=== PATIENT | female | born 1935 | race Caucasian/White ===

== ENCOUNTER 2017-03-14 12:37 | Inpatient (IN) | payer OTHER ==
[~2017-03-14] VITALS: Ht 162.6 cm; Wt 69.9 kg
[~2017-03-14 12:37] MED LIST: AMITRIPTYLINE H10 M1 PO; ATORVASTATIN CA80 MG PO; EFFEXOR XR75 MG PO; LASIX 20 MG TAB20 MG PO; PANTOPRAZOLE SO40 MG PO; PLAVIX 75 MG TA75 M1 PO; TOPROL XL100 MG PO
[2017-03-14 12:38] VITALS: BP 156/77
[2017-03-14] MEDS ORDERED: KEFLEX500 M1 PO (13:17)
[2017-03-14] MEDS ORDERED: NORVASC10 MG PO (13:17)
[2017-03-14] MEDS ORDERED: NITROGLYCERIN0.4 MG SUBLING (13:17)
[2017-03-14] MEDS ORDERED: TRICOR145 MG PO (13:18)
[2017-03-14 13:19] LABS: ABSOLUTE EOSINOPHILS 0.1 thou/uL (0.0-0.7); ABSOLUTE LYMPHOCYTES 1.2 thou/uL (0.8-5.3); ABSOLUTE MONOCYTES 0.3 thou/uL (0.0-1.2); ABSOLUTE NEUTROPHILS 3.1 thou/uL (1.6-8.1); BASOPHILS 0.8 %; EOSINOPHILS 1.2 %; HEMATOCRIT 40.6 % (37.0-47.0); HEMOGLOBIN 13.6 gm/dL (12.0-15.0); MCH 28.8 pg (26.0-34.0); MCHC 33.5 g/dL (28.0-37.0); MCV 85.9 fL (80.0-100.0); MONOCYTES 7.1 %; MPV 7.8 fl. (7.2-11.1); NUCLEATED RBCS 0 /100WBC; PLATELET COUNT* 232 thou/uL (150-400); POLYS 65.9 %; RBC 4.73 mil/uL (4.20-5.00); RDW-CV 13.9 % (10.5-14.5); WBC 4.7 thou/uL (4.0-11.0)
[2017-03-14 13:24] LABS: INR 1.1; PROTIME 10.3 Seconds (9.20-11.50)
[2017-03-14 13:25] LABS: ANION GAP 10 mmol/L (7-16); BUN 13 mg/dL (7-18); CALCIUM 8.9 mg/dL (8.5-10.1); CHLORIDE 103 mmol/L (98-107); CO2 28 mmol/L (21-32); CREATININE 0.8 mg/dL (0.6-1.3); GLUCOSE 106 mg/dL (70-99); POTASSIUM 3.4 mmol/L (3.5-5.1); SODIUM 141 mmol/L (136-145)
[2017-03-14 13:36] LABS: ALBUMIN 3.6 g/dL (3.4-5.0); ALKALINE PHOSPHATASE 69 U/L (46-116); LIPASE 261 U/L (73-393); NT-PRO BRAIN NAT PEPTIDE 189 pg/mL (<300); SGOT 35 U/L (15-37); SGPT 25 U/L (30-65); TOTAL BILIRUBIN 0.4 mg/dL (<0.1-1.0); TOTAL PROTEIN 7.5 g/dL (6.4-8.2); TROPONIN-I LEVEL <0.06 ng/mL (<0.06)
--- NOTE | 2017-03-14 13:42 | NUR ---
BRITNEY NOTIFIED UPON PT RETURN. PT CONNECTED TO MONITOR
[2017-03-14 15:06] LABS: URINE BILIRUBIN NEGATIVE (Negative); URINE BLOOD TRACE (Negative); URINE CLARITY CLEAR; URINE COLOR YELLOW; URINE GLUCOSE-RANDOM NEGATIVE (Negative); URINE KETONES TRACE (Negative); URINE LEUKOCYTES-REFLEX NEGATIVE (Negative); URINE NITRITE-REFLEX NEGATIVE (Negative); URINE PROTEIN TRACE (Negative)
[2017-03-14 16:32] VITALS: BP 158/65
[2017-03-14 18:00] VITALS: BP 154/69
--- NOTE | 2017-03-14 18:00 | NUR ---
PT TO UNIT AT 1630 VIA RICHARD AND ED RN SYLVIA. BEDSIDE REPORT RECEIVED. A & O X4. PT IS SLOW TO ANSWER QUESTIONS. ASSESSMENT COMPLETE. VS OBTAINED. MED/SURG STATUS. ORIENTED TO ROOM AND DROPLET ISOLATION PRECAUTIONS MAINTAINED. NEEDED ITEMS AND CALL LIGHT WITHIN REACH.
[2017-03-14 20:00] VITALS: BP 140/64
[2017-03-15 04:00] VITALS: BP 135/70
--- NOTE | 2017-03-15 07:05 | NUR ---
PATIENT CONFUSED THROUGHOUT THE NIGHT, REPEATEDLY ASKING THE SAME QUESTIONS. REORIENTATION PROVIDED NEEDED. PATIENT ORIENTED TO NAME AND PLACE. UPON BLADDER SCANNING, PATIENT ASKED THREE TIMES WHAT IT WOULD SHOW. EXPLANATION GIVEN, HOWEVER, PATIENT FORGETFUL. PATIENT WAS UP TO BR WITH SBA THROUGHTOUT SHIFT, NO URINARY INCONTINENCE NOTED. PATIENT DENIES PAIN AND DISCOMFORT THROUGHOUT SHIFT. HOURLY ROUNDING OBSERVED. CALL LIGHT WITHIN REACH
[2017-03-15 08:00] VITALS: BP 141/70
--- NOTE | 2017-03-15 09:01 | NUR ---
ASSUMED CARE OF PT AROUND 0715 THIS AM. REFER TO ASSESSMENT. PT HAS NO C/O N/V/D OR PAIN THIS AM. STATES SHE WANTS TO GO HOME. FLU PRECAUTIONS/ ISOLATION IN PLACE. NO OTHER CONCERNS AT THIS TIME. CLWR. WCTM.
--- NOTE | 2017-03-15 11:43 | EKG ---
[place] [address] ELECTROCARDIOGRAM REPORT Name: JEAN PAUL SALVADOR Room: [address] ADM IN .R.#: [id number] Admission: 03/14/17 Attend Phys: Anjelica Milton Discharge: Date of : 33 Report #: [id number] THIS REPORT FOR: //name// [facility] ED Test Date: 2017-03-14 Test Time: 13:05:35 Pat Name: JEAN PAUL SALVADOR Department: Room: [facility] Gender: F Wardrobe Technician: Debbi CRUZ : 1935 Requested By: Lico García Order Number: [id number] MD: Harlan Phoenix Measurements Intervals [place] Rate: 69 P: 47 OR: 164 QRS: 4 QRSD: 97 T: 119 QT: 412 QTc: 442 Interpretive Statements Sinus rhythm Abnormal R-wave progression, early transition Abnormal T, consider ischemia, anterior leads Artifact in lead(s) I,II,III,aVR,aVL,aVF,V2,V3,V4,V6 Compared to ECG 03/04/2012 21:17:45 T-wave abnormality now present Possible ischemia still present Electronically Signed On 03-15-2017 11:43:22 TELEPHONIC NURSE by Harlan Phoenix [email or web address] <ELECTRONICALLY SIGNED> By: Harlan Phoenix MD, [facility] 03/15/17 1143 1305 1305 Harlan Phoenix MD, [facility] /EPI
--- NOTE | 2017-03-15 14:29 | NUR ---
PT TRANSFERRED TO MED/SURG UNIT ROOM 307 WITH ALL BELONGINGS. PT STATES SHE WILL CALL HER DAUGHTER TO INFORM HER OF THE TRANSFER. REPORT GIVEN TO MED/SURG NURSE. NO OTHER CONCERNS AT THIS TIME. CLWR. WCTM.
--- NOTE | 2017-03-15 15:02 | NUR ---
MET WITH PT AND SPOKE WITH DTR/RALPH OVER THE PHONE. PT WITH SOME CONFUSION, DIFFICULTY WITH WORDS AT TIMES. PT LIVES ALONE IN [place] AT [facility]. SHE HAS NO SERVICES THERE. PT DRIVES AND IS ABLE TO DO HER OWN ADLS. STATES SHE HASN'T 'FALLEN' YET. PT USES NO EQUIPMENT. SHE HASN'T HAD HH OR BEEN TO SNF. PER RALPH, PT IS SUSPICIOUS OF 'EVERYONE' AND NOT SURE PT WOULD ALLOW HH. DISCUSSED POSSIBLE SNF. HAS THERAPY JAVY ORDERED. EXPLAINED TO DTR QUALIFIERS FOR SNF, WON'T KNOW UNTIL THERAPY SEES HER. PT DOESN'T HAVE A DPOA EITHER. DTR PLANS TO TALK WITH PT ABOUT BOTH OF THOSE ISSUES WHEN SHE VISITS [facility]. ALSO DISCUSSED SNF FACILITIES IN HER INSURANCE NETWORK. RALPH THINKS PT WOULD PREFER [facility], BUT SHE IS OPEN TO DISCUSSING [facility] OR [facility] ALSO. CM TO F/U WITH PT/DTR TOMORROW AFTER THERAPY SEES HER.
--- NOTE | 2017-03-15 17:25 | NUR ---
PATIENT TRANSFERED FROM TELEMETRY, REPORT TAKEN FROM SHEA. PATIENT IS A&OX4, FORGETFUL. ON ROOM AIR, IV LEFT FOREARM, FLUIDS INFUSSING. UP STAND BY WITH UNSTEADY GAIT AT TIMES. PATIENT EASILY DISTRACTED BUT REDIRECTED EASILY. NO C/O PAIN/N/V. NO OTHER CONCERNS AT THIS TIME. APPROPRAITE AND COOPORATIVE .
[2017-03-16] VITALS: BP 130/61
--- NOTE | 2017-03-16 05:50 | NUR ---
PT SLEPT WELL OVERNIGHT, STATES SHE DOESNT FEEL GOOD BUT NO SPECIFIC COMPLAINTS VOICED AT BEDTIME. REFUSING SOME PO MEDICINE STATING NAUSEA BUT DENIES NEED FOR MEDS, CRACKERS AND [place] GIVEN WITH GOOD RELIEF. AO, FORGETFUL. SETTING OFF BED ALARM TO GET OOB UP TO BR TO VOID. ROOM AIR. PRAIRIE BAND. LFA IVF INFUSING PER PUMP. REMAINS ON DROPLET ISOLATION FOR +FLU. NO LABS DRAWN THIS MORNING. CALL LITE IN EASY REACH, BED ALARM ON FOR SAFETY.
[2017-03-16 07:30] VITALS: BP 147/72
--- NOTE | 2017-03-16 12:21 | NUR ---
CONTINUE TO FOLLOW, SPOKE WITH PT'S DTR/RALPH OVER THE PHONE. STATES SHE SPOKE WITH PT LAST EVENING ABOUT SNF AND UNSURE IF PT WILL AGREE. RALPH WAS ABLE TO TALK WITH DR ALEXIS THIS AM AND UNDERSTANDS AT THIS TIME THE RECOMMENDATION WOULD BE FOR 24HR CARE. RALPH WILLING TO CONSIDER SNF VS HOME WITH HER ASSISTING AND HH OR [facility]. MADE HER AWARE THAT [facility] IF FULL AT THIS TIME, WILL CONSIDER [place] AND [facility]. CALLED AND FAXED REFERRAL TO BOTH PLACES. WILL DISCUSS FURTHER WITH PT. PLAN IS FOR PT TO POSSIBLY DC TOMORROW AFTER WORKING MORE WITH THERAPY
[2017-03-16 15:57] VITALS: BP 149/67
--- NOTE | 2017-03-16 19:49 | NUR ---
PATIENT A&OX4, FORGETFULL AND CAN BECOME CONFUSED AT TIMES. ON ROOM AIR, IV LEFT FOREARM SALINE LOCK. UP WITH ASSISTX1 STAND BY, STEADY GIAT. NO C/O PAIN/N/V. PATIENT WAS EMOTIONAL THIS EVENING, STATING SHE WANTS TO GO HOME AND SEE HER CAT. PATIENT REASSURED SHE WILL BE LEAVING TOMORROW. NO OTHER CONCERNS AT THIS TIME. APPROPRIATE AND COOPORATIVE WITH CARE.
[2017-03-16 20:49] VITALS: BP 158/75
--- NOTE | 2017-03-17 05:21 | NUR ---
PT IS ABLE TO COMMUNICATE HER NEEDS TO STAFF EFFECTIVELY. SHE HAS DENIED THE NEED FOR PAIN MEDICATION UP TO THIS TIME. SHE CAN BE CONFUSED AT TIMES. POSSIBLE DISCHARGE TO A SNIF LATER TODAY.
[2017-03-17 08:16] VITALS: BP 133/57
--- NOTE | 2017-03-17 09:13 | NUR ---
RECEIVED CALL FROM PT'S DTR/RALPH STATING PT WAS INSISTENT ABOUT GOING HOME AND DOENS'T WANT TO GO TO SNF. RALPH WILLING TO STAY WITH PT BUT HAS TO WORK TODAY, CAN BE HERE AT 4PM. RALPH THINKS PT WILL BE AGREEABLE TO HH AND [facility]. UPDATED FIONA/PEDIATRIC PHYSICIAN TO FACILITATE DC PLANS
[2017-03-17 12:30] VITALS: BP 140/58
[2017-03-17 15:07] VITALS: BP 133/57
--- NOTE | 2017-03-17 15:32 | NUR ---
PT AND DTR STATED PT'S CLOTHES WERE 'MISSING'. WAS ABLE TO FIND IN CLOTHES IN SECURITY, PT ID'D THEM HERS. BLACK COAT, PIN PJ PANTS WITH BLACK HEARTS, BLACK LONG SLEEVE TSHIRT, WHITE SHORT SLEEVE TSHIRT, PINK SLIPPERS.
[2017-03-17] MEDS ORDERED: TESSALON PERLE100 MG PO (15:44)
[2017-03-17 15:51] VITALS: BP 133/57
[2017-03-17 16:35] VITALS: BP 133/57
--- NOTE | 2017-03-17 16:44 | NUR ---
ASSUMED CARES OF PT AT 0700. PT IN BED, BED IN LOW AND LOCKED POSITION. FALL PRECAUTIONS IN PLACE. CALL BUTTON AND PERSONAL ITEMS IN PT REACH. PT A&O X3, FORGETFUL, CONFUSED. HRRR PER AUSCULTATION, VSS ON RA, AFEBRILE, PERRL, TAKENS MEDS WELL PO. SKIN INTACT, NO EDEMA, SCATTERED BRUISING AND SCARS NOTED. PT UP WITH ONE ASSIST/WALKER. LEFT FA IV PATENT TO FLUSH. PT DENIES PAIN AT THIS TIME. NON PRODUCTIVE COUGH. OCCASIONAL NAUSEA, MEDICATIONS EFFECTIVE. PT CLEARED TO D/C HOME WITH DAUGHTERS HELP. PT SIGNED ALL DISCHARGE FORMS, EDUCATION COMPLETED ABOUT MEDS, STROKE RISKS/S/S, PRESCRIPTION AND SCRIPT EDUCATION GIVEN AND SIGNED. ALL QUESIONS ANSWERED. PT ESCORTED VIA WC WITH DAUGHTER AT SIDE WITH NURSING STAFF TO CAR TO GO HOME. PT STABLE, SMILING, TALKING AT D/C. PT ASSISTED INTO CAR, SEAT BELT SECURED. DISCHARGE COMPLETE AT 1632. ALL OF PT BELONGINGS PACKED, ROOM CHECKED AND CARRIED OUT BY DAUGHTER. IV REMOVED.
== END 2017-03-17 16:32 | disposition home health service (06) | DRG 193 ==
LOC: M.ERS 12:37 → M.2W 15:18 → M.TBA-ER 15:18 → M.2W 16:27 → M.3W 03-15 14:28
PROVIDERS: Emergency Medicine; ADMIT Internal Medicine
DX: J10.08 Influenza due to other identified influenza virus with other specified pneumonia (principal); G93.41 Metabolic encephalopathy; J12.9 Viral pneumonia, unspecified; I10 Essential (primary) hypertension; E78.00 Pure hypercholesterolemia, unspecified; E86.0 Dehydration; E87.6 Hypokalemia; Z87.891 Personal history of nicotine dependence; I25.2 Old myocardial infarction; Z95.5 Presence of coronary angioplasty implant and graft; Z79.899 Other long term (current) drug therapy; Z88.5 Allergy status to narcotic agent; Z23 Encounter for immunization

== ENCOUNTER 2018-11-15 12:23 | Inpatient (IN) | payer OTHER ==
[~2018-11-15] VITALS: Ht 152.4 cm; Wt 64.4 kg
[~2018-11-15 12:23] MED LIST changes: +KEFLEX500 M1 PO; +NITROGLYCERIN0.4 MG SUBLING; +NORVASC10 MG PO; +TESSALON PERLE100 MG PO; +TRICOR145 MG PO
[2018-11-15 12:31] VITALS: BP 179/93
[2018-11-15 14:28] LABS: ABSOLUTE BASOPHILS 0.1 thou/uL (0.0-0.2); ABSOLUTE EOSINOPHILS 0.1 thou/uL (0.0-0.7); ABSOLUTE LYMPHOCYTES 1.1 thou/uL (0.8-5.3); ABSOLUTE MONOCYTES 0.4 thou/uL (0.0-1.2); ABSOLUTE NEUTROPHILS 4.1 thou/uL (1.6-8.1); BASOPHILS 1.3 %; EOSINOPHILS 2.2 %; HEMATOCRIT 41.1 % (37.0-47.0); HEMOGLOBIN 13.9 gm/dL (12.0-15.0); LYMPHOCYTES 19.4 %; MCHC 33.7 g/dL (28.0-37.0); MCV 85.9 fL (80.0-100.0); MONOCYTES 6.9 %; MPV 7.3 fl. (7.2-11.1); NUCLEATED RBCS 0 /100WBC; PLATELET COUNT* 317 thou/uL (150-400); POLYS 70.2 %; RBC 4.79 mil/uL (4.20-5.00); WBC 5.9 thou/uL (4.0-11.0)
[2018-11-15 14:54] LABS: URINE BILIRUBIN NEGATIVE (Negative); URINE CLARITY CLEAR; URINE COLOR YELLOW; URINE GLUCOSE-RANDOM NEGATIVE (Negative); URINE KETONES NEGATIVE (Negative); URINE PROTEIN NEGATIVE (Negative)
[2018-11-15 14:55] LABS: URINE BLOOD NEGATIVE (Negative); URINE NITRITE-REFLEX NEGATIVE (Negative); URINE UROBILINOGEN 0.2 E.U./dl (0.2-1.0)
[2018-11-15 14:57] LABS: URINE LEUKOCYTES-REFLEX NEGATIVE (Negative)
[2018-11-15 14:58] LABS: CALCIUM 8.9 mg/dL (8.5-10.1); CREATININE 0.9 mg/dL (0.6-1.3); POTASSIUM 3.5 mmol/L (3.5-5.1)
[2018-11-15 15:02] LABS: ALBUMIN 3.6 g/dL (3.4-5.0); TOTAL BILIRUBIN 0.3 mg/dL (<0.1-1.0); TOTAL PROTEIN 6.5 g/dL (6.4-8.2)
[2018-11-15 15:04] LABS: AMP/METHAMP Negative (Negative); BARBITURATES Negative (Negative); BENZODIAZEPINES Negative (Negative); COCAINE Negative (Negative); METHADONE Negative (Negative); OPIATES Negative (Negative); PCP Negative (Negative); THC Negative (Negative)
[2018-11-15 16:00] VITALS: BP 147/73
--- NOTE | 2018-11-15 16:25 | EKG ---
[place] [address] ELECTROCARDIOGRAM REPORT Name: JEAN PAUL SALVADOR Room: [address] ADM IN .R.#: [id number] Admission: 11/15/18 Attend Phys: Hailey Souza Discharge: Date of : 33 Report #: [id number] THIS REPORT FOR: //name// 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: [facility] : 1935 Requested By: Lico García Order Number: [id number] MD: Owen Miller Measurements Intervals [place] Rate: 74 P: 68 WA: 142 QRS: 18 QRSD: 108 T: 109 QT: 484 QTc: 537 Interpretive Statements Sinus rhythm Repol abnrm suggests ischemia, anterolateral or LV strain Prolonged QT interval Baseline wander in lead(s) II,III,aVF Compared to ECG 03/14/2017 13:05:35 Early repolarization now present Prolonged QT interval now present Possible ischemia still present Electronically Signed On 11-15-2018 16:25:41 CDT by Owen Miller [email or web address] <ELECTRONICALLY SIGNED> By: Owen Miller MD, FACC 11/15/18 1625 1255 1255 Owen Miller MD, FAC /EPI
[2018-11-15 17:00] VITALS: BP 143/68
--- NOTE | 2018-11-15 18:06 | NUR ---
PT ADMITTED ON TELE FLOOR. REPORT RECEIVED FROM ER NURSE. PT IS ALERT AWAKE, ORIENTED TO PERSON ( HER NAME) ONLY. CONFUSED, FORGETFUL, AND AGITATED. ON RA. MEDICAL SURGICAL STATUS. PT GOT KRISTOFER FOR HER AGITATION. UNABLE TO OBTAIN HX FROM PT SO PT'S DAUGHTER WAS CALLED. PT LIVES IN AN APARTMENT ALONE PER DAUGHTER. WAS BROUGHT HERE AT HOSPITAL BY AMBULANCE WHICH WAS CALLED BY THE FOLKS FROM THE [facility] ASSISTED LIVING. PT IS STILL AGITATED AFTER KRISTOFER WAS GIVEN.
[2018-11-15] MEDS ORDERED: ASA81BEC PO (18:23)
[2018-11-15] MEDS ORDERED: VITAMIN D1000 UNI2 PO (18:24)
[2018-11-15] MEDS ORDERED: ISOSORBIDE MONO30 M1 PO (18:26)
[2018-11-15] MEDS ORDERED: FISH OIL 1,0001 EAC9 PO (18:27)
[2018-11-15] MEDS ORDERED: OMEPRAZOLE40 MG PO (18:28)
--- NOTE | 2018-11-15 18:43 | NUR ---
PT OVERLY AGITATED PINCHING AND KICKING STAFF. MADE AWARE. ORDER TO GIVE ANOTHER KRISTOFER SHOT AT THIS TIME AND TO PUT MITTENS ON. SORIN ORDER IN CHART
--- NOTE | 2018-11-15 18:58 | NUR ---
PERIPHERAL LINE INSERTED IN RIGHT FOREARM. SUCCESSFUL.
--- NOTE | 2018-11-15 19:13 | NUR ---
MITTENS APPLIED IN BILATERAL UPPER EXTREMITIES
[2018-11-15 20:00] VITALS: BP 129/67
[2018-11-16] VITALS: BP 123/61
--- NOTE | 2018-11-16 03:11 | NUR ---
INITAL ASSESSMENT PT SLEEPING. PT AWOKE AND BECAME AGGITATED AND COMBATIVE. GEODON GIVEN. PT ASKED TO GO TO THE BR. SHE WAS UNABLE TO VOID AND BLADDER SCAN SHOWED 700MLS. YU PLACED WITH 850ML RETURN OF CLEAR YELLOW. PT RESTING QUIETLY WHILE STILL AWAKE. MED SURG STATUS. MITTENS ON.
[2018-11-16 04:26] LABS: ABSOLUTE EOSINOPHILS 0.2 thou/uL (0.0-0.7); ABSOLUTE LYMPHOCYTES 1.2 thou/uL (0.8-5.3); ABSOLUTE MONOCYTES 0.5 thou/uL (0.0-1.2); ABSOLUTE NEUTROPHILS 4.1 thou/uL (1.6-8.1); BASOPHILS 0.7 %; EOSINOPHILS 2.5 %; HEMATOCRIT 41.1 % (37.0-47.0); HEMOGLOBIN 13.4 gm/dL (12.0-15.0); LYMPHOCYTES 20.8 %; MCH 28.2 pg (26.0-34.0); MCHC 32.7 g/dL (28.0-37.0); MCV 86.4 fL (80.0-100.0); MONOCYTES 8.2 %; MPV 7.3 fl. (7.2-11.1); NUCLEATED RBCS 0 /100WBC; PLATELET COUNT* 320 thou/uL (150-400); POLYS 67.8 %; RBC 4.75 mil/uL (4.20-5.00); RDW-CV 15.2 % (10.5-14.5)
[2018-11-16 04:38] LABS: ALBUMIN 3.2 g/dL (3.4-5.0); CALCIUM 9.1 mg/dL (8.5-10.1); CREATININE 0.8 mg/dL (0.6-1.3); POTASSIUM 3.1 mmol/L (3.5-5.1); TOTAL BILIRUBIN 0.2 mg/dL (<0.1-1.0); TOTAL PROTEIN 6.3 g/dL (6.4-8.2)
--- NOTE | 2018-11-16 05:04 | NUR ---
PT RESTING QUIETLY. 1:1 SITTER AND MITTENS ON.
--- NOTE | 2018-11-16 08:32 | NUR ---
assumed pt care this am at 0715. report received from nurse. pt found lying in bed, sleeping. sitter 1:1 at bedside. medsurg status. no mittens in place since pt is calm and sleeping. will continue to monitor patient's status.
--- NOTE | 2018-11-16 10:06 | NUR ---
pt in bed w/1:1 assist d/t behaviors per director of physical therapy. pt confused and present w/short term memory lost; aeb inability to remember where she lives, where she is currently or articulate her thoughts and complete sentences. pt A&Ox, was able to give her name and . pt son madelin is supposed to visit [facility] per director of physical therapy. cm to cont to follow.
[2018-11-16 10:56] VITALS: BP 146/59
[2018-11-16 13:16] LABS: CHOLESTEROL 207 mg/dL (<200); HDL CHOLESTEROL 53 mg/dL (>40); LDL CHOLESTEROL 135 mg/dL (<100); SERUM ASSESSMENT Clear; TC:HDL 3.9 Ratio (Not establshd); TRIGLYCERIDE 96 mg/dL (<150); VLDL 19 mg/dL (<40)
--- NOTE | 2018-11-16 18:36 | NUR ---
NURSE ATTEMPTED TO REPLACE K. PT REFUSED 2ND DOSE OF K. KRISTOFER GIVEN. WILL CONTINUE TO MONITOR. RESTRAINT ORDER AT 1800. NO MORE RESTRAINT. SITTER 1;1
[2018-11-16 20:00] VITALS: BP 130/54
--- NOTE | 2018-11-17 06:00 | NUR ---
ASSUMED PATIENT CARE AT 1900. PATIENT ALERT TO SELF. SITTER IN PLACE, CAN BE IMPULSIVE. NO COMPLAINTS OF PAIN OR DISCOMFORT NOTED. NO SKIN ISSUES NOTED. ABLE TO GET PATIENT TO TAKE MEDS IN PUDDING. YU IN PLACE AND DRAINING TO GRAVITY. DOOR MANAGER AND HOURLY ROUNDING COMPLETED CHARTED.
[2018-11-17 08:00] VITALS: BP 125/46
--- NOTE | 2018-11-17 11:13 | NUR ---
PT ALERT AND AGITATED. ORIENTED TO SELF ONLY. PT CONTINUES TO TRY TO GET OOB AND REQUIRES CONSTANT REDIRECTION AND PRN MEDICATIONS. MED SURG STATUS AND ALL VSS ON ROOM AIR. 1:1 SITTER AT BEDSIDE FOR SAFETY. EDUCATED ON SAFETY AND PLAN OF CARE. PLEASE SEE ASSESSMENT FOR ADDITIONAL INFORMATION. WILL CONT TO MONITOR
--- NOTE | 2018-11-17 12:23 | NUR ---
DISCUSSED WITH DR RINCON, REC: [facility]. CALL TO DTR/RALPH TO DISCUSS, IN AGREEMENT. PT CONFUSED WITH 1;1 SITTER. NO DPOA, 2 AFFADVATS IN CHART. CALLED AND FAXED REFERRALS TO [facility] AND TO [facility]. [facility] IS FULL. PAGE OUT TO TA
--- NOTE | 2018-11-17 12:39 | NUR ---
PATIENT TRANSFERRED TO ROOM 304 AT 1230. PT IS UP IN CHAIR EATING LUNCH WITH SITTER AT BEDSIDE. PT HAS NO OTHER CONCERNS. PT IS ON ROOM AIR, VSS. REPORT FROM NEERAJ WEINSTEIN. CALL LIGHT WITHIN REACH, WILL CONTINUE PLAN OF CARE
[2018-11-17 15:00] VITALS: BP 124/62
--- NOTE | 2018-11-17 17:01 | NUR ---
PT CONFUSED, AGITATED, AND HITTING THIS AFTERNOON. GEODON GIVEN NEEDED. PT HAS SITTER IN PLACE. FAMILY CAME THIS EVENING TO SIGN AFFIDAVIT. PT IS ON ROOM AIR, VSS. WILL CONTINUE PLAN OF CARE
[2018-11-17 21:30] VITALS: BP 126/63
--- NOTE | 2018-11-18 06:06 | NUR ---
PATIENT SEEMED CALM THROUGH SHIFT. SHE TOOK HER MEDS IN A SPOON OF APPLESAUCE. SHE BECAME A LITTLE COMBATIVE WHEN WE HAD TO DO A BED CHANGE BUT SHE DID NOT ASSAULT ANY OF US (2 TECHS AND NURSE). I DID NOT HAVE TO ADMINISTER ANYTHING FOR ANXIETY AND SHE DID NOT ATTEMPT TO GET OUT OF BED. SHE HAD A 1:1 SITTER ALL NIGHT. STILL AWAITING PSYCH EVAL.
[2018-11-18 07:40] VITALS: BP 127/67
--- NOTE | 2018-11-18 11:42 | NUR ---
Following for d/c planning needs. Reviewed chart and spoke with Dr Martinez and pt's son. Pt's son said he has not seen pt on a regular basis over the past few years. Called [facility] and faxed referral, shlomo with affadavit from pt's daughter. Awaiting return call re bed availability and acceptance.
[2018-11-18 13:50] VITALS: BP 127/67
[2018-11-18] MEDS ORDERED: SERTRALINE HCL100 MG PO (16:48)
--- NOTE | 2018-11-18 16:51 | NUR ---
ASSUMED CARE OF PATIENT AT APPROX 0730. ALERT AND ORIENTED X2. PATIENT HAD NO COMPLAINTS. PATIENT CONFUSED AND BECAME AGITATED, BECOMING VIOLENT TOWARD STAFF, HITTING AND SCRATCHING. PATIENT ALSO WALKED THE UNIT WITH STAFF FOLLOWING. NURSING HAD TO GIVE GEODON FOR COMBATIVE BEHAVIOR. PATIENT STILL WALKED THE UNIT FOR ANOTHER HOUR-TWO BEFORE BEING ASSISTED BACK TO BED. PATIENT RESTED IN BED UNTIL THE AMBULANCE TRANSPORT ARRIVED TO PICK HER UP. PATIENT DISCHARGED TO [facility] AT 1410 WITH ALL PERSONAL BELONINGS.
--- NOTE | 2018-11-25 19:25 | CON ---
[facility] [address] [place] [address] CONSULTATION Name: JEAN PAUL SALVADOR Room: [address] IN M.R.#: [id number] Admission: 11/15/18 Attend Phys: Hailey Souza Discharge: 11/18/18 Date of : 33 Report #: [id number] THIS REPORT FOR: //name// CC: Jos Castillo DATE OF SERVICE: 11/16/2018 HISTORY OF PRESENT ILLNESS: This is an 83-year-old female patient who was evaluated by me this morning. The patient does not provide any reliable history. I talked to the patient's daughter and she provided some history. This patient has seen 2 neurologists in the past. They have diagnosed her with dementia. They recommended going on some medications, but the patient refused. The patient has deteriorated recently and became even worst in the last 2-3 months. She was living independently as per the family. The patient was not running any temperature or any definite chills or rigors. The patient's baseline is that she is able to recognize the close family members, but otherwise her memory has been poor. She has a history of hypertension, insomnia, high cholesterol, hysterectomy, cardiac stent, and what looks like pretty significant dementia. REVIEW OF SYSTEMS: A 14-point review of systems was carried out and this was relevant 14-point review of systems. PAST MEDICAL HISTORY: Positive for dementia. FAMILY HISTORY: Unremarkable. SOCIAL HISTORY: She apparently was living without much help and does not drink alcohol. PHYSICAL EXAMINATION: NEUROLOGIC: The patient's examination indicates that she appeared to be agitated to some extent. She does listen to you when you give her some commands. She is alert. She does not know what month it is. She does not know what date it is. She does not know what hospital she is in. She is fully conscious. Cranial nerve examination 2-12 looks mostly unremarkable, the best it could be carried out. She moves all 4 extremities. She does not cooperate with the fundus or cerebellar sign. She is moderately built individual. She does not have any thyroid mass. Her hearing and vision look adequate. LUNGS: She has no respiratory difficulty and she has no rhonchi. CARDIAC: Appeared unremarkable. VITAL SIGNS: Her last blood pressure was 146/59, respiration was 18, pulse was 55, and temperature was 97.9. [place] [id number] CONSULTATION Name: JEAN PAUL SALVADOR Room: [address]#: [id number] Admission: 11/15/18 Attend Phys: Hailey Souza Discharge: 11/18/18 Date of : 33 Report #: [id number] LABORATORY DATA: White count is normal at 6. Potassium is 3.1. She did have a CT scan which was mostly unremarkable. She had an MRI about a year ago with her neurologist. IMPRESSION: I talked to the daughter. I tried to talk to the patient, but I do not think she understands that. Because of what appeared to be advanced dementia and the patient's agitations and poor cooperation with neurological workup, she wants to be very conservative and wants us to minimize the testing and that is reasonable in this patient. She believes that the patient should be in a skilled nursing and I agree with her. I put a certified social workers in health care consult for that. I will also suggest a psychiatric consult in this patient because the patient appeared to be agitated and does appear to have behavior problem. We will go ahead and check a carotid Doppler and EEG in this patient. I will also repeat the TSH and vitamin B12. Until that shows some overriding finding, the main thing will be placement in this patient and minimizing the testing on this patient as per family's request, which appeared to be reasonable. Dr. Martinez will follow up this patient with you from tomorrow. <ELECTRONICALLY SIGNED> By: Gavin Moreno MD 11/25/18 [id number] Moreno MD /nt
== END 2018-11-18 14:10 | DRG 71 ==
LOC: M.ERS 12:23 → M.TBA-ER 15:10 → M.2W 15:10 → M.3W 15:10 → M.2W 16:15 → M.3W 11-17 12:38
PROVIDERS: Emergency Medicine; ADMIT Internal Medicine
DX: G93.40 Encephalopathy, unspecified (principal); E44.1 Mild protein-calorie malnutrition; I10 Essential (primary) hypertension; E78.5 Hyperlipidemia, unspecified; F03.90 Unspecified dementia, unspecified severity, without behavioral disturbance, psychotic disturbance, mood disturbance, and anxiety; G47.00 Insomnia, unspecified; E78.00 Pure hypercholesterolemia, unspecified; Z90.710 Acquired absence of both cervix and uterus; I25.2 Old myocardial infarction; Z95.5 Presence of coronary angioplasty implant and graft; Z88.6 Allergy status to analgesic agent; Z68.27 Body mass index [BMI] 27.0-27.9, adult; Z23 Encounter for immunization